=== PATIENT | female | born 1945 | race Caucasian/White ===

== ENCOUNTER 2016-08-11 15:30 | Emergency (ER) | payer OTHER ==
[2016-08-11 15:39] VITALS: RESP 18; TEMP 97.5
--- NOTE | 2016-08-11 15:41 | EDPHY ---
H & P Stated Complaint: slipped on ice hit head at 2pm/?loc/A&O x 2 memory deficits Time Seen by Provider: 08/11/16 15:41 HPI/ROS: CHIEF COMPLAINT: Confusion and headache following head injury HISTORY OF PRESENT ILLNESS: The patient presents to the ED with complaints of confusion and headache following head injury. She reportedly slipped and fell on ice earlier today. There was unknown loss of consciousness. Her reports that she is seemed somewhat disoriented since her fall. The patient has no complaints of focal numbness or weakness. She denies antecedent chest pain or shortness of breath. She has no complaints of neck pain or additional trauma. The patient is not currently anticoagulated. She denies any significant medical history. REVIEW OF SYSTEMS: A comprehensive 10 point review of systems is otherwise negative aside from elements mentioned in the history of present illness. Source: Patient - Personal History Current Tetanus/Diphtheria Vaccine: Yes - Medical/Surgical History Hx Asthma: No Hx Chronic Respiratory Disease: No Hx Diabetes: No Hx Cardiac Disease: No Hx Renal Disease: No Hx Cirrhosis: No Hx Alcoholism: No Hx HIV/AIDS: No Hx Splenectomy or Spleen Trauma: No Other PMH: pheochromocytosis - Social History Smoking Status: Never smoked - Physical Exam Exam: General Appearance: Elderly female, mild discomfort from head injury Head: Occipital hematoma noted Eyes: Pupils equal, round, reactive ENT, Mouth: No hemotympanum, no oral trauma Neck: Minimal generalized cervical spine tenderness, trachea midline Respiratory: Lungs clear to auscultation bilaterally Cardiovascular: Regular rate and rhythm Abdomen: Abdomen is soft and nontender, pelvis stable Skin: No lacerations, No abrasion Back: No midline tenderness Extremities: Nontender, full range of motion Neurological: A&Ox3, normal motor function, normal sensory exam, GCS 15 Constitutional: Initial Vital Signs Temperature (C) 36.4 C 08/11/16 15:35 Heart Rate 63 08/11/16 15:35 Respiratory Rate 18 08/11/16 15:35 Blood Pressure 178/91 H 08/11/16 15:35 O2 Sat (%) 95 08/11/16 15:35 O2 Delivery Mode Room Air Allergies/Adverse Reactions: codeine Allergy (Verified 08/11/16 15:34) Home Medications: Medication Instructions Recorded Hormone Replacement 08/11/16 Levothyroxine 08/11/16 Ondansetron Odt [Zofran Odt] 4 mg PO Q4PRN PRN #20 tab 08/11/16 Medical Decision Making - Diagnostics Imaging: CT head without contrast: Negative for intracranial hemorrhage or skull fracture. Study results reported to me by Dr. Boogie Small. ED Course/Re-evaluation: The patient was taken for a stat CT scan of the head given her history of headache and confusion. Fortunately the results of the study demonstrate no evidence of intracranial hemorrhage. Additionally, the patient did have some cervical spine tenderness, a CT scan of that was ordered which also demonstrates no evidence of an obvious fracture. The patient had multiple examinations in the ED by myself over a 2 hour period. She remains with a GCS of 15 and symptoms of a mild concussion. At this point time since the patient is on anticoagulated I do feel that she can be discharged home as her can perform close observation. She will be discharged home with customary aftercare instructions and return precautions. Re-evaluation at 5:30 p.m.: Vital signs stable, hemodynamically stable, abdomen soft nontender, neurologically intact without evidence of spinal cord injury. Patient is discharged home with a concussion aftercare instruction booklet. Differential Diagnosis: Differential diagnosis considered includes intracranial hemorrhage, skull fracture, concussion, cervical spine fracture - Data Points Medications Given: Discontinued Medications Ondansetron HCl (Zofran Odt) 4 mg PO EDNOW ONE Stop: 08/11/16 16:21 Last Admin: 08/11/16 16:23 Dose: 4 mg Departure - Departure Disposition: Home, Routine, Self-Care Clinical Impression: Concussion, Cervical strain, acute, Scalp hematoma Condition: Good Instructions: Concussion (ED) Additional Instructions: 1. Tylenol and ibuprofen as needed for headache. 2. Zofran as needed for nausea. 3. Please return to the ED for markedly worsening headache, vomiting, numbness , weakness, difficulty with speech/walking or other concerns.
--- NOTE | 2016-08-11 16:14 | CT ---
"CT Scan of the Head (Without Contrast) Clinical History: 71-year-old female who fell today on ice, and has some posterior head pain with mem ory loss and some nausea. Rule out acute intracranial abnormality. Technique: Axial unenhanced images were obtained from the vertex through the skull base, reformatted at 5.00 and 1.50 mm increments, and reviewed in bone, brain, and subdural windows. Images were repro cessed in parasagittal and paracoronal planes. Dose reduction techniques were utilized. The DFOV is 2 5.0 cm. Comparison: None. Findings: There is a small posterior parietal-occipital scalp hematoma, seen on series 3, images 67-9 2. There is prominence of the ventricles and basilar cisterns, with cortical sulcal widening, consist ent with age-related cerebral cortical atrophy. There is mild periventricular diminished attenuation, consistent with mild chronic microvascular ischemic gliosis. There is no intracranial hemorrhage bart ntified. There are no abnormal extraaxial fluid collections identified. There is no mass effect, or evidence of an acute infarct. The skull and skull base are unremarkable. There is some posterior in terhemispheric parafalcine calcification. There is some mild mural atherosclerotic calcification asso ciated with the cavernous carotid arteries. The paranasal sinuses and the mastoids are free of fluid. There is trace mucosal thickening in the floor the maxillary sinuses and in the anterior ethmoid sin uses. The craniocervical junction, sella turcica, pineal gland, and the orbits are within normal limi ts. Impression: 1. Mild senescent features with no acute intracranial abnormality. 2. Small posterior right paracentral parietal-occipital scalp hematoma. If there is further clinical concern regarding the patient's symptoms, MR imaging is suggested, if no t otherwise contraindicated. Results were conveyed to Usman George. A Document Only message has been documented for Usman George in the [employer] | Critical Re sult system on 08/11/2016 16:09, Message ID [id number]."
[2016-08-11] MEDS ORDERED: ONDANSETRON DISINTEGRATING 4 MG TAB PO ONE (16:20)
[2016-08-11 17:56] VITALS: BP 135/74; PULSE 61; O2SAT 96
--- NOTE | 2016-08-11 18:31 | CT ---
CT cervical spine. Clinical indication: Trauma, neck pain. TECHNIQUE: 1.25 mm contiguous helical axial scanning through the cervical spine without contrast. Rou maci reconstructions in the coronal and sagittal planes. Dose reduction technique was performed. FINDINGS: There is mild degenerative changes of the cervical spine. Alignment is anatomic. Disk space s are relatively well maintained. No prevertebral soft tissue swelling. No fracture. IMPRESSION: No evidence of fracture. Results relayed by Dr. Luc Forbes to Dr. Usman Santoyo today 1733 hours.
== END 2016-08-11 17:57 | disposition home or self-care (01) ==
DX: S06.0X0A Concussion without loss of consciousness, initial encounter (principal); S16.1XXA Strain of muscle, fascia and tendon at neck level, initial encounter; S00.03XA Contusion of scalp, initial encounter; W00.0XXA Fall on same level due to ice and snow, initial encounter